=== PATIENT | male | born 1940 ===

== ENCOUNTER → 2017-08-13 14:06 | Outpatient (CLI) | payer MEDICARE | END | disposition home or self-care (01) | LOC: D.CT 14:06 | DX: M25.552 Pain in left hip (principal) ==

== ENCOUNTER → 2017-12-03 10:29 | Outpatient (CLI) | payer MEDICARE | END | disposition home or self-care (01) | LOC: D.US 10:29 | DX: M79.604 Pain in right leg (principal); R22.41 Localized swelling, mass and lump, right lower limb ==